=== PATIENT | female | born 1945 | race Caucasian/White ===

== ENCOUNTER → 2018-04-06 | Outpatient (CLI) | payer MEDICARE, OTHER ==
--- NOTE | 2018-04-06 12:21 | US ---
EXAMINATION TYPE: US thyroid st tissue head/neck DATE OF EXAM: 04/06/2018 COMPARISON: NONE CLINICAL HISTORY: E04.1 Thyroid Nodule. Follow up thyroid nodules, hx of FNA GLAND SIZE: Right Lobe: 4.8 x 2.0 x 2.1 cm Overall Parenchyma: heterogenous Left Lobe: 4.8 x 1.7 x 1.9 cm Overall Parenchyma: heterogeneous Isthmus Thickness: 0.3 cm NODULES RIGHT: # of nodules measured on right: 3 1. 2.1 X 1.2 x 1.7 cm hypoechoic solid nodule at the upper pole with well-defined margins. This nod ule is wider than tall and shows intranodular vascularity. Prior size: 1.7 x 1.1 x 1.8 cm. 2. 1.1 X 0.8 x 0.8 cm hypoechoic solid nodule at the lower pole with well-defined margins. This nodu le is wider than tall and shows intranodular vascularity. Prior size: 1.0 x 0.7 x 1.1 cm 3. 0.8 X 0.5 x 0.8 cm hypoechoic solid nodule at the upper pole with well-defined margins. This nodu le is wider than tall and shows no intranodular vascularity. Prior size: 0.6 x 0.4 x 0.6 cm LEFT: # of nodules measured on left: 1 1. 1.5 X 1.3 x 1.3 cm isoechoic solid nodule at the mid pole with well-defined margins. This nodule is wider than tall and shows intranodular vascularity. Prior size: 1.4 x 1.2 x 1.0 cm ISTHMUS: # of nodules measured in the isthmus: 0 Bilateral neck scanned, no evidence of lymphadenopathy. IMPRESSION: Multiple thyroid nodules
== END ==
LOC: RADUSWWP 10:27
PROVIDERS: ATTEND Otolaryngology
DX: E04.2 Nontoxic multinodular goiter (principal); Z88.0 Allergy status to penicillin; Z91.041 Radiographic dye allergy status; Z91.048 Other nonmedicinal substance allergy status
CPT/HCPCS: 76536

== ENCOUNTER → 2019-01-18 | Outpatient (CLI) | payer MEDICARE ==
--- NOTE | 2019-01-18 10:31 | US ---
EXAMINATION TYPE: US thyroid st tissue head/neck DATE OF EXAM: 01/18/2019 COMPARISON: US 04/06/2018 and 02/28/2014 CLINICAL HISTORY: E04.1 thyroid nodule. Follow up thyroid nodules, history thyroid FNA GLAND SIZE: Right Lobe: 4.8 x 2.3 x 2.1 cm Overall Parenchyma: heterogenous Left Lobe: 4.5 x 1.7 x 2.2 cm Overall Parenchyma: heterogeneous Isthmus Thickness: 0.4 cm NODULES RIGHT: # of nodules measured on right: 3 1. 2.0 X 1.1 x 1.7 cm hypoechoic solid nodule at the upper pole with well-defined margins. This nod ule is wider than tall and shows intranodular vascularity. Prior size: 2.1 x 1.2 x 1.7 cm 2. 1.0 X 0.6 x 0.9 cm hypoechoic solid nodule at the lower pole with well-defined margins. This nodu le is wider than tall and shows intranodular vascularity. Prior size: 1.1 x 0.8 x 0.8 cm 3. 0.8 X 0.5 x 0.7 cm hypoechoic solid nodule at the upper pole with well-defined margins. This nodu le is wider than tall and shows intranodular vascularity. Prior size: 0.8 x 0.5 x 0.8 cm LEFT: # of nodules measured on left: 1 1. 1.4 X 1.4 x 1.4 cm isoechoic solid nodule at the mid pole with well-defined margins. This nodule is wider than tall and shows intranodular vascularity. Prior size: 1.5 x 1.3 x 1.3 cm ISTHMUS: # of nodules measured in the isthmus: 0 Bilateral neck scanned, no evidence of lymphadenopathy. IMPRESSION: Multinodular goiter. Similar size of the bilateral thyroid nodules in comparison to the prior of 03/09 with the largest nodules bilaterally demonstrating only very minimal interval growth from exam s back to 2013.
== END | disposition home or self-care (01) ==
LOC: RADUSWWP 08:56
PROVIDERS: ATTEND Otolaryngology
DX: E04.2 Nontoxic multinodular goiter (principal)
CPT/HCPCS: 76536

== ENCOUNTER → 2019-06-18 | Outpatient (CLI) | payer MEDICARE ==
--- NOTE | 2019-06-18 17:05 | CT ---
EXAMINATION TYPE: CT lumbar spine wo con DATE OF EXAM: 06/18/2019 COMPARISON: None HISTORY: Low back pain radiating down bilateral legs. CT DLP: 987 mGycm Automated exposure control for dose reduction was used. An unenhanced CT of the lumbar spine was performed. Bone and soft tissue window settings are submitt ed as well as coronal and sagittal reconstructions. FINDINGS: Lumbar vertebral bodies show preserved height and alignment. There is multilevel spondylosis and loss of disc height at intervertebral levels, vacuum phenomenon present at the L4-5, L3-4, L2-3 and L1-2 levels. There is a hiatal hernia with partial intrathoracic stomach. Some nonobstructive punctate francisco javier culi are present within the right kidney. L1-L2: Posterior disc bulge causes mild anterior mass effect on the thecal sac. No significant spinal stenosis. Circumferential extension of disc bulge causes some foraminal encroachment greater on the right. L2-L3: Posterior broad-based disc bulge causes mild anterior mass effect on the thecal sac. No signif icant spinal stenosis. No definite foraminal encroachment. L3-L4: Posterior extension endplate disc complex causes mild anterior mass effect on the thecal sac. No significant spinal stenosis. Circumferential extension endplate disc complex encroaches mildly on the foramina. L4-L5: Posterior broad-based disc bulge causes anterior mass effect on the thecal sac. Mild spinal st enosis is suspected. There is facet arthropathy with hypertrophy ligamentum flavum causing some poste rior lateral mass effect on the thecal sac. L5-S1: No significant spinal stenosis. There is some facet arthropathy change with hypertrophic ligam entum flavum. Minimal posterior disc bulge present. No significant foraminal encroachment. IMPRESSION: No paraspinal masses are identified. Degenerative disc disease and facet arthropathy. Mild foraminal encroachment. No significant spinal stenosis. Nonobstructive right nephrolithiasis. Hiatal hernia wit h partial intrathoracic stomach. Lumbar segments are intact. Question borderline hepatomegaly.
== END | disposition home or self-care (01) ==
LOC: RADCTMAIN 15:52
PROVIDERS: ATTEND Physical Medicine & Rehabilitation
DX: M47.26 Other spondylosis with radiculopathy, lumbar region (principal); M51.36 Other intervertebral disc degeneration, lumbar region
CPT/HCPCS: 72131

== ENCOUNTER → 2020-01-10 | Outpatient (CLI) | payer MEDICARE ==
--- NOTE | 2020-01-10 10:32 | US ---
EXAMINATION TYPE: US thyroid st tissue head/neck DATE OF EXAM: 01/10/2020 COMPARISON: NONE CLINICAL HISTORY: E04.1 THYROID NODULE. Patient has large thick neck and was unable to lay flat for exam. Technically diffficult. GLAND SIZE: Right Lobe: 5.5 x 2.4 x 1.6 cm Overall Parenchyma: heterogenous Left Lobe: 5.2 x 1.9 x 2.4 cm Overall Parenchyma: heterogeneous Isthmus Thickness: 0.2 cm NODULES RIGHT: # of nodules measured on right: 2 1. 2.0 x 1.0 x 1.6cm hypoechoic solid nodule at the upper pole with well-defined margins. This nodu le is wider than tall and shows intranodular vascularity. Prior size: 2.0 x 1.1 x 1.7 cm 2. 0.9 X 0.7 x 0.9 cm hypoechoic solid nodule at the mid pole with poorly defined margins . This no dule is wider than tall and shows intranodular vascularity. Prior size: 1.0 x 0.6 x 0.9 cm 3. 0.8 X 0.5 x 0.5 cm hypoechoic mixed nodule at the mid lower pole with poorly defined margins. Th is nodule is wider than tall and shows intranodular vascularity. Prior size: 0.8 x 0.5 x 0.7 cm LEFT: # of nodules measured on left: 1 1. 1.6 X 1.3 x 1.5cm isoechoic solid nodule at the mid pole with well-defined margins. This nodule is wider than tall and shows intranodular vascularity. Prior size: 1.4 x 1.4 x 1.4 cm ISTHMUS: # of nodules measured in the isthmus: 0 Bilateral neck scanned, no evidence of lymphadenopathy. IMPRESSION: Thyromegaly correlate for thyroiditis. Multinodular thyroid demonstrates no significant interval ling ge in the size of the nodules as described above.
== END | disposition home or self-care (01) ==
LOC: RADUSWWP 09:42
PROVIDERS: ATTEND Otolaryngology
DX: E01.0 Iodine-deficiency related diffuse (endemic) goiter (principal)
CPT/HCPCS: 76536

== ENCOUNTER → 2021-01-10 | Outpatient (CLI) | payer MEDICARE ==
--- NOTE | 2021-01-10 15:50 | US ---
EXAMINATION TYPE: US thyroid st tissue head/neck DATE OF EXAM: 01/10/2021 COMPARISON: US 2020 CLINICAL HISTORY: E04.1 Thyroid nodule. Thyroid nodules, history of thyroid FNA GLAND SIZE: Right Lobe: 5.4 x 2.3 x 2.1 cm Overall Parenchyma: heterogenous Left Lobe: 5.3 x 2.0 x 2.1 cm Overall Parenchyma: heterogeneous Isthmus Thickness: 0.3 cm NODULES RIGHT: # of nodules measured on right: 1 1. 2.1 X 1.1 x 1.8 cm, upper mid, solid or almost completely solid, hypoechoic nodule, which is wid er than tall, with smooth margins, without echogenic foci. TR 4 Prior size: 2.0 x 1.0 x 1.6 cm 2. multiple subcentimeter nodules throughout LEFT: # of nodules measured on left: 1 1. 1.4 X 1.2 x 1.1 cm, mid lateral, solid or almost completely solid, hypoechoic nodule, which is w ider than tall, with smooth margins, without echogenic foci. Prior size: 1.6 x 1.3 x 1.5 cm ISTHMUS: # of nodules measured in the isthmus: 0 Bilateral neck scanned, no evidence of lymphadenopathy. IMPRESSION: Moderately suspicious nodule right lobe thyroid biopsy if this has not previously been performed. 2017 ACR TI-RADS LEVEL: TR-RADS 4 - Moderately Suspicious: Follow if > 1 cm, FNA if > 1.5 cm *Highest TI-RADS level nodule reported
== END | disposition home or self-care (01) ==
LOC: RADUSWWP 15:16
PROVIDERS: ATTEND Otolaryngology
DX: E04.1 Nontoxic single thyroid nodule (principal)
CPT/HCPCS: 76536

== ENCOUNTER → 2022-01-14 | Outpatient (CLI) | payer MEDICARE ==
--- NOTE | 2022-01-14 14:35 | US ---
EXAMINATION TYPE: US thyroid st tissue head/neck DATE OF EXAM: 01/14/2022 COMPARISON: Multiple thyroid ultrasounds, most recent 01/10/2021. CLINICAL HISTORY: E04.1 THYROID NODULE. Nodule. Hx FNA. GLAND SIZE: Right Lobe: 5.8 x 2.1 x 2.6 cm Overall Parenchyma: heterogenous Left Lobe: 5.3 x 2.3 x 2.0 cm Overall Parenchyma: heterogeneous Isthmus Thickness: 0.34 cm NODULES RIGHT: # of nodules measured on right: 2. Additional subcentimeter nodules seen. 1. 2.1 X 1.9 x 1.2 cm, upper mid, solid or almost completely solid, hypoechoic nodule, which is wid er than tall, with smooth margins, without echogenic foci. TR-4 Prior size: 2.1 x 1.1 x 1.8 cm 2. 1.5 X 1.4 x 1.2 cm, mid lateral, solid or almost completely solid, hypoechoic nodule, which is w ider than tall, with smooth margins, without echogenic foci. TR4 Prior size: 1.4 x 1.2 x 1.1 cm LEFT: # of nodules measured on left: 1 1. 1.2 X 1.3 x 0.9 cm, lower mid, solid or almost completely solid, hypoechoic nodule, which is wid er than tall, with smooth margins, without echogenic foci. TR-4 Prior size: 1.4 x 1.2 x 1.1 cm. ISTHMUS: # of nodules measured in the isthmus: 0 Bilateral neck scanned, no evidence of lymphadenopathy. IMPRESSION: Multinodular thyroid redemonstrated without significant change.
== END | disposition home or self-care (01) ==
LOC: RADUSWWP 13:49
PROVIDERS: ATTEND Otolaryngology
DX: E04.1 Nontoxic single thyroid nodule (principal)
CPT/HCPCS: 76536

== ENCOUNTER → 2022-01-23 | Outpatient (CLI) | payer MEDICARE ==
[2022-01-23 14:28] LABS: T4, Free (Free Thyroxine) 1.03 ng/dL (0.800-1.800)
[2022-01-23 14:29] LABS: Thyroid Peroxidase Antibodies <9.0 U/mL (0.0-33.0)
== END | disposition home or self-care (01) ==
LOC: LABWHC1 10:04
PROVIDERS: ATTEND Otolaryngology
DX: Z00.00 Encounter for general adult medical examination without abnormal findings (principal); E03.9 Hypothyroidism, unspecified; R53.83 Other fatigue
CPT/HCPCS: 36415; 84439; 84443; 84480; 86376

== ENCOUNTER → 2023-08-13 | Outpatient (CLI) | payer MEDICARE ==
[2023-08-13 11:55] LABS: Prothrombin Time 10.6 sec (10.0-12.5)
[2023-08-13 15:39] LABS: ALT 12 U/L (8-44); AST 18 U/L (13-35); Albumin 4.1 g/dL (3.8-4.9); Albumin/Globulin Ratio 1.86 Ratio (1.60-3.17); Alkaline Phosphatase 85 U/L (41-126); Blood Urea Nitrogen 8.4 mg/dL (9.0-27.0); Calcium 10.4 mg/dL (8.7-10.3); Carbon Dioxide 26.4 mmol/L (21.6-31.8); Chloride 105 mmol/L (96-109); Globulin 2.2 g/dL (1.6-3.3); Glucose 115 mg/dL (70-110); Potassium 4.9 mmol/L (3.5-5.5); Sodium 140 mmol/L (135-145); Total Bilirubin 0.5 mg/dL (0.3-1.2); Total Protein 6.3 g/dL (6.2-8.2)
[2023-08-13 16:14] LABS: Basophils # (A) 0.05 X 10*3/uL (0.00-0.10); Eosinophils # (A) 0.16 X 10*3/uL (0.04-0.35); Eosinophils % (A) 3.1 %; HCT 44.5 % (37.2-46.3); HGB 14.8 g/dL (12.0-15.0); Lymphocytes # (A) 2.22 X 10*3/uL (0.90-5.00); MCH 29.5 pg (27.0-32.0); MCHC 33.3 g/dL (32.0-37.0); MCV 88.6 FL (80.0-97.0); Monocytes # (A) 0.55 X 10*3/uL (0.20-1.00); Monocytes % (A) 10.7 %; NRBC Per 100 WBC 0 X 10*3/uL (0.00-0.01); Neutrophils # (A) 2.16 X 10*3/uL (1.80-7.70); Neutrophils % (A) 41.8 %; Platelet Count 236 X 10*3/uL (140-440); RBC 5.02 X 10*6/uL (4.10-5.20); RDW 12.8 % (11.5-14.5); WBC 5.16 X 10*3/uL (4.50-10.00)
== END | disposition home or self-care (01) ==
LOC: LABPAT 10:45
PROVIDERS: ATTEND Orthopaedic Surgery Sports Medicine
DX: Z01.812 Encounter for preprocedural laboratory examination (principal); M17.12 Unilateral primary osteoarthritis, left knee; I45.10 Unspecified right bundle-branch block; R94.31 Abnormal electrocardiogram [ECG] [EKG]; Z22.322 Carrier or suspected carrier of Methicillin resistant Staphylococcus aureus
CPT/HCPCS: 80053; 85025; 85610; 85730; 87070; 93005

== ENCOUNTER 2023-08-31 13:27 | Observation (INO) | payer MEDICARE ==
--- NOTE | 2023-08-31 13:50 | ED ---
Extremity Problem HPI - General Chief complaint: Extremity Problem,Nontraumatic Stated complaint: Complications from knee replacement Time Seen by Provider: 08/31/23 13:48 Source: patient, RN notes reviewed Mode of arrival: wheelchair Limitations: no limitations - History of Present Illness Initial comments: This is an 78 year old female who presents to the emergency department for left leg pain. Patient was discharged yesterday after being in the hospital for a left knee replacement. States that since going home she continues to have pain and is unable to care for herself in this state and does not have any help. She is taking oxycodone and has an iPACK for pain management, however this has not been effective. States that she is unable to ambulate due to the pain. She is hoping for rehab placement, she states that she cannot care for self at home in this state. Notes that it took her an hour to get off of the toilet today in her current condition. - Related Data Home Medications Medication Instructions Recorded Confirmed Ibuprofen [Motrin] 800 tab PO Q6H PRN 01/26/15 08/31/23 Omeprazole [PriLOSEC] 20 tab PO DAILY 01/26/15 08/31/23 Ergocalciferol [Vitamin D2 (1250 1,250 mcg PO SA 08/25/23 08/31/23 Mcg = 90587 Iu)] oxyBUTYnin chloride [oxyBUTYnin 5 mg PO DAILY 08/31/23 08/31/23 chloride ER] Previous Rx's Medication Instructions Recorded Aspirin [Adult Low Dose Aspirin EC] 81 mg PO BID #60 tab 08/29/23 Docusate [Colace] 100 mg PO BID #60 capsule 08/29/23 Ondansetron [Zofran] 4 mg PO Q8HR PRN #21 tab 08/29/23 oxyCODONE HCL/ACETAMINOPHEN 1 tab PO Q4HR PRN #32 tab 08/29/23 [Percocet 5-325 mg] Allergies Allergy/AdvReac Type Severity Reaction Status Date / Time Iodinated Contrast Media Allergy Anaphylaxis Verified 08/31/23 15:20 acetaminophen [From [place]] AdvReac Nausea Verified 08/31/23 15:20 adhesive tape AdvReac Rash/Hives Verified 08/31/23 15:20 aspirin AdvReac Nausea & Verified 08/31/23 15:20 Vomiting hydrocodone bitartrate AdvReac Nausea Verified 08/31/23 15:20 [From [place]] Penicillins AdvReac "Passed Verified 08/31/23 15:20 out" Review of Systems ROS Statement: Those systems with pertinent positive or pertinent negative responses have been documented in the HPI. ROS Other: All systems not noted in ROS Statement are negative. Past Medical History Past Medical History: GERD/Reflux, Osteoarthritis (OA) Additional Past Medical History / Comment(s): OCC INCONTINENT History of Any Multi-Drug Resistant Organisms: None Reported Past Surgical History: Heart Catheterization, Hernia Repair, Orthopedic Surgery Additional Past Surgical History / Comment(s): hernia mesh x2. BILATERAL WRIST- REMOVAL CARTILEDGE. BILATERAL CATARACT WITH LENS. Additional Past Anesthesia/Blood Transfusion Reaction / Comment(s): POSSIBLE JACQUELINE POST ANESTHESIA (PER MEDICAL CLEARANCE). Past Psychological History: No Psychological Hx Reported Smoking Status: Former smoker Past Alcohol Use History: None Reported Past Drug Use History: None Reported - Past Family History Son(s) Family Medical History: Deep Vein Thrombosis (DVT) General Exam Limitations: no limitations General appearance: alert, in no apparent distress Head exam: Present: atraumatic, normocephalic, normal inspection Respiratory exam: Present: normal lung sounds bilaterally. Absent: respiratory distress, wheezes, rales, rhonchi, stridor Cardiovascular Exam: Present: regular rate, normal rhythm, normal heart sounds. Absent: systolic murmur, diastolic murmur, rubs, gallop, clicks Extremities exam: Present: other (Expected postoperative swelling to the left lower extremity. Incision is clean, dry, and intact.) Neurological exam: Present: alert, oriented X3, CN II-XII intact Psychiatric exam: Present: normal affect, normal mood Skin exam: Present: warm, dry, intact, normal color. Absent: rash Course Vital Signs 08/31/23 08/31/23 08/31/23 13:39 16:43 17:13 Temperature 98.8 F Pulse Rate 80 80 68 Respiratory 17 18 16 Rate Blood Pressure 162/78 160/80 138/68 O2 Sat by Pulse 91 L 97 94 L Oximetry Medical Decision Making - Medical Decision Making This is an 78 year old female who presents to the emergency department for left leg pain. Was pt. sent in by a medical professional or institution? @ -No Did you speak to anyone other than the patient for history? @ -No Did you review nursing and triage notes? @ -Yes, and I agree, it is accurate with regards to the patient's symptoms. Were old charts reviewed? @ -No Differential Diagnosis? @ -Differential Musculoskeletal: Muscular strain, contusion, ligament sprain, fracture, arthritis, septic arthritis, bursitis, cellulitis, muscle spasm, nerve compression, DVT, arterial occlusion, herpes zoster, electrolyte abnormality, tumor.... This is not meant to be in all inclusive list EKG interpreted by me (3pts min.)? @ -Not obtained X-rays interpreted by me (1pt min.)? @ -Not obtained CT interpreted by me (1pt min.)? @ -Not obtained U/S interpreted by me (1pt. min.)? @ -Not obtained What testing was considered but not performed? (CT, X-rays, U/S, labs)? Why? @ -None What meds were considered but not given? Why? @ -None Did you discuss the management of the patient with other professionals? @ -Dr. Coker who spoke with Dr. Garcia, the patient's surgeon, who accepts the patient for admission. Did you reconcile home meds? @ -Yes Was smoking cessation discussed for >3mins.? @ -No Was critical care preformed (if so, how long)? @ -No Were there social determinants of health that impacted care today? How? (Homelessness, low income, unemployed, alcoholism, drug addiction, transportation, low edu. Level, literacy, decrease access to med. care, fci, rehab)? @ -No Was there de-escalation of care discussed even if they declined? (Discuss DNR or withdrawal of care, Hospice)? @ -No What co-morbidities impacted this encounter? (DM, HTN, Smoking, COPD, CAD, Cancer, CVA, Hep., AIDS, mental health diagnosis, sleep apnea, morbid obesity)? @ -Morbid obesity Was patient admitted / discharged? @ -Admitted. Patient is essentially presenting to the emergency department requesting admission for rehab placement. States that she has been unable to ambulate following the knee replacement as a result of her pain and cannot take care of herself. She lives with her , who is also unable to help her. Case discussed with medicine, who requests admission to orthopedics due to r ecent surgery. Case discussed with Dr. Coker, orthopedics. He spoke with the patient's surgeon, Dr. Garcia, who is agreeable to admission. Lab work obtained prior to admission which was found to be unremarkable. Consult placed for medicine for medical management. Consult placed for physical therapy, Occupational Therapy, and case management as well. Undiagnosed new problem with uncertain prognosis? @ -None Drug Therapy requiring intensive monitoring for toxicity (Heparin, Nitro, Insulin, Cardizem)? @ -None Were any procedures done? @ -None Diagnosis/symptom? @ -Postoperative left knee pain, inability to ambulate due to left knee pain Acute, or Chronic, or Acute on Chronic? @ -Acute Uncomplicated (without systemic symptoms) or Complicated (systemic symptoms)? @ -Uncomplicated Side effects of treatment? @ -None Exacerbation, Progression, or Severe Exacerbation] @ -Not applicable Poses a threat to life or bodily function? @ -Yes, the patient is unable to ambulate. This case was discussed in detail with the attending ED physician, Dr. Joseph. Presentation, findings, and treatment plan discussed in detail as well. - Lab Data Result diagrams: 08/31/23 14:18 08/31/23 14:18 Lab Results 08/31/23 08/31/23 Range/Units 14:18 14:18 WBC 7.7 (3.8-10.6) k/uL RBC 4.56 (3.80-5.40) m/uL Hgb 13.4 (11.4-16.0) gm/dL Hct 41.7 (34.0-46.0) % MCV 91.4 (80.0-100.0) fL MCH 29.4 (25.0-35.0) pg MCHC 32.1 (31.0-37.0) g/dL RDW 12.9 (11.5-15.5) % Plt Count 220 (150-450) k/uL MPV 7.2 Neutrophils % 71 % Lymphocytes % 19 % Monocytes % 7 % Eosinophils % 1 % Basophils % 1 % Neutrophils # 5.5 (1.3-7.7) k/uL Lymphocytes # 1.5 (1.0-4.8) k/uL Monocytes # 0.5 (0-1.0) k/uL Eosinophils # 0.1 (0-0.7) k/uL Basophils # 0.0 (0-0.2) k/uL Sodium 135 L (137-145) mmol/L Potassium 4.0 (3.5-5.1) mmol/L Chloride 103 (98-107) mmol/L Carbon Dioxide 27 (22-30) mmol/L Anion Gap 5 mmol/L BUN 13 (7-17) mg/dL Creatinine 0.71 (0.52-1.04) mg/dL Est GFR (CKD-EPI)AfAm >90 (>60 ml/min/1.73 sqM) Est GFR (CKD-EPI)NonAf 81 (>60 ml/min/1.73 sqM) Glucose 118 H (74-99) mg/dL Calcium 10.1 (8.4-10.2) mg/dL Total Bilirubin 0.7 (0.2-1.3) mg/dL AST 30 (14-36) U/L ALT 15 (4-34) U/L Alkaline Phosphatase 87 (38-126) U/L Total Protein 5.9 L (6.3-8.2) g/dL Albumin 3.4 L (3.5-5.0) g/dL Disposition Clinical Impression: Postoperative pain of left knee, Inability to ambulate due to knee Disposition: ADMITTED IP TO [facility] Time of Disposition: 16:04
[2023-08-31 14:24] LABS: Basophils % (A) 1 %; Eosinophils # (A) 0.1 k/uL (0-0.7); Eosinophils % (A) 1 %; HCT 41.7 % (34.0-46.0); HGB 13.4 gm/dL (11.4-16.0); Lymphocytes # (A) 1.5 k/uL (1.0-4.8); Lymphocytes % (A) 19 %; MCH 29.4 pg (25.0-35.0); MCHC 32.1 g/dL (31.0-37.0); MCV 91.4 fL (80.0-100.0); Mean Platelet Volume 7.2; Monocytes # (A) 0.5 k/uL (0-1.0); Monocytes % (A) 7 %; Neutrophils # (A) 5.5 k/uL (1.3-7.7); Neutrophils % (A) 71 %; Platelet Count 220 k/uL (150-450); RBC 4.56 m/uL (3.80-5.40); RDW 12.9 % (11.5-15.5); WBC 7.7 k/uL (3.8-10.6)
[2023-08-31] MEDS: KETOROLAC 15 MG/ML 1 ML VIAL IVP STA (14:31)
[2023-08-31] MEDS: HYDROmorphone 1 MG/ML 1 ML SYRINGE IVP STA (14:32)
[2023-08-31 14:35] LABS: ALT 15 U/L (4-34); AST 30 U/L (14-36); African American GFR (CKD) >90 (>60 ml/min/1.73 sqM); Albumin 3.4 g/dL (3.5-5.0); Alkaline Phosphatase 87 U/L (38-126); Anion Gap 5 mmol/L; Blood Urea Nitrogen 13 mg/dL (7-17); Calcium 10.1 mg/dL (8.4-10.2); Carbon Dioxide 27 mmol/L (22-30); Chloride 103 mmol/L (98-107); Glucose 118 mg/dL (74-99); Non-African American GFR(CKD) 81 (>60 ml/min/1.73 sqM); Sodium 135 mmol/L (137-145); Total Bilirubin 0.7 mg/dL (0.2-1.3); Total Protein 5.9 g/dL (6.3-8.2)
[2023-08-31] MEDS ORDERED: NALOXONE 0.4 MG/ML 1 ML VIAL IV PRN (16:04)
[2023-08-31] MEDS ORDERED: ACETAMINOPHEN TAB 325 MG TAB PO PRN (16:04)
[2023-08-31] MEDS ORDERED: IBUPROFEN 400 MG TAB PO PRN (16:04)
[2023-08-31] MEDS ORDERED: ONDANSETRON 4 MG/2 ML VIAL IVP PRN (16:04)
[2023-08-31] MEDS ORDERED: IBUPROFEN 800 MG TAB PO PRN (16:08)
[2023-08-31] MEDS ORDERED: ONDANSETRON 4 MG TAB PO PRN (16:08)
[2023-08-31] MEDS: DOCUSATE 100 MG CAP PO SCH (20:16)
[2023-08-31] MEDS: NON FORMULARY DRUG (Aspirin [Adult Low Dose Aspirin Ec] 81 MG Tablet.Dr) PO SCH (20:16)
[2023-09-01] MEDS: HYDROmorphone 1 MG/ML 1 ML SYRINGE IVP PRN (02:04)
[2023-09-01] MEDS: PANTOPRAZOLE 40 MG TABLET PO SCH (06:45)
[2023-09-01] MEDS: OXYBUTYNIN XL 5 MG TAB.ER.24 PO SCH (08:00)
[2023-09-01] MEDS: oxyCODONE-APAP 5-325MG 1 EACH TAB PO PRN ×2 (08:04→12:49)
[2023-09-01] MEDS ORDERED: PANTOPRAZOLE 40 MG/10 ML VIAL IV SCH (09:00)
[2023-09-01] MEDS ORDERED: NON FORMULARY DRUG (Omeprazole [Prilosec] 20 MG Capsule.Dr) PO SCH (09:00)
--- NOTE | 2023-09-01 10:18 | P.HPOR ---
History of Present Illness H&P Date: 09/01/23 Chief Complaint: Left knee pain, Status post total left knee arthroplasty. This is an 78-year-old female who was discharged to home on 08/30/2023 after having total left knee arthroplasty. The patient was doing fairly well and stated that she was ready to go home on Friday. She returned to the emergency department on 08/31/2023 stating that she was unable to care for herself at home and was having increased pain. The patient is now requesting inpatient rehab. Past Medical History Past Medical History: GERD/Reflux, Osteoarthritis (OA) Additional Past Medical History / Comment(s): OCC INCONTINENT History of Any Multi-Drug Resistant Organisms: None Reported Past Surgical History: Heart Catheterization, Hernia Repair, Orthopedic Surgery Additional Past Surgical History / Comment(s): hernia mesh x2. BILATERAL WRIST- REMOVAL CARTILEDGE. BILATERAL CATARACT WITH LENS. RIGHT ANKLE BONE SPUR. TOTAL LEFT KNEE. Additional Past Anesthesia/Blood Transfusion Reaction / Comment(s): POSSIBLE JACQUELINE POST ANESTHESIA (PER MEDICAL CLEARANCE). Past Psychological History: No Psychological Hx Reported Smoking Status: Former smoker Past Alcohol Use History: None Reported Additional Past Alcohol Use History / Comment(s): QUITE 40 YRS AGO. SMOKED 1PPD Past Drug Use History: None Reported - Past Family History Son(s) Family Medical History: Deep Vein Thrombosis (DVT) Medications and Allergies Home Medications Medication Instructions Recorded Confirmed Type Ibuprofen [Motrin] 800 tab PO Q6H PRN 01/26/15 08/31/23 History Omeprazole [PriLOSEC] 20 tab PO DAILY 01/26/15 08/31/23 History Ergocalciferol [Vitamin D2 (1250 1,250 mcg PO SA 08/25/23 08/31/23 History Mcg = 44766 Iu)] Aspirin [Adult Low Dose Aspirin EC] 81 mg PO BID #60 tab 08/29/23 08/31/23 Rx Docusate [Colace] 100 mg PO BID #60 capsule 08/29/23 08/31/23 Rx Ondansetron [Zofran] 4 mg PO Q8HR PRN #21 tab 08/29/23 08/31/23 Rx oxyCODONE HCL/ACETAMINOPHEN 1 tab PO Q4HR PRN #32 tab 08/29/23 08/31/23 Rx [Percocet 5-325 mg] oxyBUTYnin chloride [oxyBUTYnin 5 mg PO DAILY 08/31/23 08/31/23 History chloride ER] Allergies Allergy/AdvReac Type Severity Reaction Status Date / Time Iodinated Contrast Media Allergy Anaphylaxis Verified 08/31/23 15:20 acetaminophen [From [place]] AdvReac Nausea Verified 08/31/23 15:20 adhesive tape AdvReac Rash/Hives Verified 08/31/23 15:20 aspirin AdvReac Nausea & Verified 08/31/23 15:20 Vomiting hydrocodone bitartrate AdvReac Nausea Verified 08/31/23 15:20 [From [place]] Penicillins AdvReac "Passed Verified 08/31/23 15:20 out" Physical Examination This is a pleasant 78-year-old female in no acute distress. She is alert and oriented x 3. Exam of the left lower extremity reveals that her dressing is clean, dry and intact. She has difficulty lifting her leg off the bed independently. She has full foot and ankle motion without difficulty or pain. She does have pain with palpation about the mid calf. Neurovascular status to the lower extremity is intact. Results - Labs Labs: Abnormal Lab Results - Last 24 Hours (Table) 08/31/23 Range/Units 14:18 Sodium 135 L (137-145) mmol/L Glucose 118 H (74-99) mg/dL Total Protein 5.9 L (6.3-8.2) g/dL Albumin 3.4 L (3.5-5.0) g/dL H & H 08/31/23 Range/Units 14:18 Hgb 13.4 (11.4-16.0) gm/dL Hct 41.7 (34.0-46.0) % Result Diagrams: 08/31/23 14:18 08/31/23 14:18 Assessment and Plan (1) Inability to ambulate due to knee Current Visit: Yes Status: Acute Code(s): R26.2 - DIFFICULTY IN WALKING, NOT ELSEWHERE CLASSIFIED SNOMED Code(s): 279683544 (2) Postoperative pain of left knee Current Visit: Yes Status: Acute Code(s): G89.18 - OTHER ACUTE POSTPROCEDURAL PAIN; M25.562 - PAIN IN LEFT KNEE SNOMED Code(s): 9688133214 (3) Status post total left knee replacement Current Visit: No Status: Acute Code(s): Z96.652 - PRESENCE OF LEFT ARTIFICIAL KNEE JOINT SNOMED Code(s): 4148597508253 Plan: The clinical findings are discussed with the patient. We will order physical therapy and Occupational Therapy for evaluation for inpatient rehab placement. I will order a venous Doppler for evaluation of the left lower extremity secondary to her calf pain. We will plan discharge to inpatient rehab when placement is arranged.
--- NOTE | 2023-09-01 11:51 | US ---
EXAMINATION TYPE: US venous doppler duplex LE LT DATE OF EXAM: 09/01/2023 11:25 AM COMPARISON: NONE CLINICAL INDICATION: Female, 78 years old with history of R/O DVT LLE, S/P TKA; pain post op SIDE PERFORMED: Left TECHNIQUE: The lower extremity deep venous system is examined utilizing real time linear array sonog ruy with graded compression, doppler sonography and color-flow sonography. VESSELS IMAGED: Common Femoral Vein Deep Femoral Vein Greater Saphenous Vein * Femoral Vein Popliteal Vein Small Saphenous Vein * Proximal Calf Veins (* superficial vessels) Left Leg: Negative for DVT IMPRESSION: Grayscale, color doppler, spectral doppler imaging performed of the deep veins of the lo wer extremities. There is normal flow, compressibility, vascular waveforms.
--- NOTE | 2023-09-01 17:25 | P.CONS ---
History of Present Illness - Reason for Consult Consult date: 09/01/23 Medical management Requesting physician: Lonnie Garcia - Chief Complaint Left knee pain - History of Present Illness This is a pleasant 78-year-old patient, follows with Dr. Alayna Smith. Chronic stable medical conditions include osteoarthritis, obesity, GERD. Patient underwent left total knee arthroplasty by Dr. Garcia on August 27. Patient was discharged home on August 29. Patient's pain was reasonably controlled on discharge. Yesterday pain became rather severe. is also elderly was unable to help her much. Patient [facility] admitted for the same. Looking into possible rehab. Able to tolerate a diet. No nausea vomiting. No fever no chills. Review of systems: GEN.: Tired EYES: None HEENT: None NECK: None RESPIRATORY: None CARDIOVASCULAR: None GASTROINTESTINAL: None GENITOURINARY: None MUSCULOSKELETAL: [Joint pain especially left knee operative site LYMPHATICS: None HEMATOLOGICAL: None Social history: Patient stopped smoking 40 years ago. No alcohol. Lives with her . Physical examination: VITAL SIGNS: 98.6, 68, 17, 140/69, 91% on 2 L GENERAL: BMI 40.5, sitting up in bed awake not in distress. EYES: Pupils equal. Conjunctiva edy l. HEENT: External appearance of nose and ears normal, oral cavity grossly normal. NECK: JVD not raised; masses not palpable. HEART: First and second heart sounds are normal; no edema. LUNGS: Respiratory rate normal; clear to auscultation. ABDOMEN: Soft, nontender, liver spleen not palpable, no masses palpable. PSYCH: Alert and oriented x3; mood and affect edy l. MUSCULOSKELETAL: OA in joints. Dressing over left knee incision site was NEUROLOGICAL: Cranial nerves grossly intact; no facial asymmetry, power and sensation grossly intact. LYMPHATICS: No lymph nodes palpable in the axilla and neck PSYCHIATRY: None NEUROLOGICAL: None INVESTIGATIONS, reviewed in the clinical context: August 31, 2023: White count 7.7 hemoglobin 13.4 platelets 220 sodium 135 potassium 4 creatinine 0.71 Assessment plan: -Uncontrolled pain secondary to postop left total knee arthroplasty Pain medication being adjusted by orthopedic team -Left total knee arthroplasty on August [address] Garcia On aspirin for DVT prophylaxis -Primary osteoarthritis Pain medication as needed -Morbid obesity BMI 40.5 Weight loss measures -Chronic urine incontinence Oxybutynin 5 mg a day -GERD Prilosec Care was discussed with the patient at bedside. 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 Garcia Past Medical History Past Medical History: GERD/Reflux, Osteoarthritis (OA) Additional Past Medical History / Comment(s): OCC INCONTINENT History of Any Multi-Drug Resistant Organisms: None Reported Past Surgical History: Heart Catheterization, Hernia Repair, Orthopedic Surgery Additional Past Surgical History / Comment(s): hernia mesh x2. BILATERAL WRIST- REMOVAL CARTILEDGE. BILATERAL CATARACT WITH LENS. RIGHT ANKLE BONE SPUR. TOTAL LEFT KNEE. Additional Past Anesthesia/Blood Transfusion Reaction / Comm: POSSIBLE JACQUELINE POST ANESTHESIA (PER MEDICAL CLEARANCE). Past Psychological History: No Psychological Hx Reported Smoking Status: Former smoker Past Alcohol Use History: None Reported Additional Past Alcohol Use History / Comment(s): QUITE 40 YRS AGO. SMOKED 1PPD Past Drug Use History: None Reported - Past Family History Son(s) Family Medical History: Deep Vein Thrombosis (DVT) Medications and Allergies Home Medications Medication Instructions Recorded Confirmed Type Ibuprofen [Motrin] 800 tab PO Q6H PRN 01/26/15 08/31/23 History Omeprazole [PriLOSEC] 20 tab PO DAILY 01/26/15 08/31/23 History Ergocalciferol [Vitamin D2 (1250 1,250 mcg PO SA 08/25/23 08/31/23 History Mcg = 53802 Iu)] Aspirin [Adult Low Dose Aspirin EC] 81 mg PO BID #60 tab 08/29/23 08/31/23 Rx Docusate [Colace] 100 mg PO BID #60 capsule 08/29/23 08/31/23 Rx Ondansetron [Zofran] 4 mg PO Q8HR PRN #21 tab 08/29/23 08/31/23 Rx oxyCODONE HCL/ACETAMINOPHEN 1 tab PO Q4HR PRN #32 tab 08/29/23 08/31/23 Rx [Percocet 5-325 mg] oxyBUTYnin chloride [oxyBUTYnin 5 mg PO DAILY 08/31/23 08/31/23 History chloride ER] Allergies Allergy/AdvReac Type Severity Reaction Status Date / Time Iodinated Contrast Media Allergy Anaphylaxis Verified 08/31/23 15:20 acetaminophen [From [facility]ston] AdvReac Nausea Verified 08/31/23 15:20 adhesive tape AdvReac Rash/Hives Verified 08/31/23 15:20 aspirin AdvReac Nausea & Verified 08/31/23 15:20 Vomiting hydrocodone bitartrate AdvReac Nausea Verified 08/31/23 15:20 [From Aston] Penicillins AdvReac "Passed Verified 08/31/23 15:20 out" Physical Exam Vitals: Vital Signs Temp Pulse Pulse Resp BP BP Pulse Ox 09/01/23 09:58 17 09/01/23 07:16 98.6 F 68 17 140/69 91 L 09/01/23 02:00 98.2 F 72 20 142/80 96 08/31/23 20:00 98.3 F 69 20 134/74 95 08/31/23 17:30 98.2 F 70 19 157/83 95 08/31/23 17:13 68 16 138/68 94 L 08/31/23 16:43 80 18 160/80 97 08/31/23 13:39 98.8 F 80 17 162/78 91 L Intake and Output 08/31/23 09/01/23 09/01/23 22:59 06:59 14:59 Intake Total 180 Balance 180 Intake: Oral 180 Other: Voiding Method Toilet Toilet # Voids 1 1 Weight 112.945 kg Results CBC & Chem 7: 08/31/23 14:18 08/31/23 14:18 Labs: Abnormal Lab Results - Last 24 Hours (Table) 08/31/23 Range/Units 14:18 Sodium 135 L (137-145) mmol/L Glucose 118 H (74-99) mg/dL Total Protein 5.9 L (6.3-8.2) g/dL Albumin 3.4 L (3.5-5.0) g/dL
--- NOTE | 2023-09-02 16:43 | P.PN ---
Progress Note - Text Progress Note Date: 09/02/23 - Chief Complaint Left knee pain - History of Present Illness This is a pleasant 78-year-old patient, follows with Dr. Alayna Smith. Chronic stable medical conditions include osteoarthritis, obesity, GERD. Patient underwent left total knee arthroplasty by Dr. Garcia on August 27. Patient was discharged home on August 29. Patient's pain was reasonably controlled on discharge. Yesterday pain became rather severe. is also elderly was unable to help her much. Patient Coury admitted for the same. Looking into possible rehab. Able to tolerate a diet. No nausea vomiting. No fever no chills. September 01: Up in a recliner. Did work with physical therapy. Did walk about 100 feet with a rolling walker. Oral intake good. Active Medications Acetaminophen (Acetaminophen Tab 325 Mg Tab) 650 mg PO Q6HR PRN PRN Reason: Mild Pain or Fever > 100.5 Docusate Sodium (Docusate 100 Mg Cap) 100 mg PO BID [facility] Last Admin: 09/02/23 08:24 Dose: 100 mg Ergocalciferol (Ergocalciferol 1,250 Mcg (50,000 Iu) Capsule) 1,250 mcg PO SA [facility] Hydromorphone HCl (Hydromorphone 1 Mg/Ml 1 Ml Syringe) 1 mg IVP Q3HR PRN PRN Reason: Severe Pain (Scale 7 to 10) Last Admin: 09/01/23 20:40 Dose: 1 mg Ibuprofen (Ibuprofen 400 Mg Tab) 400 mg PO Q6HR PRN PRN Reason: Mild Pain or Fever > 100.5 Ibuprofen (Ibuprofen 800 Mg Tab) 800 mg PO Q6H PRN PRN Reason: Pain or Fever > 100.5 Ketorolac Tromethamine (Ketorolac 15 Mg/Ml 1 Ml Vial) 15 mg IVP Q6HR PRN PRN Reason: Moderate Pain (Scale 4 to 6) Stop: 09/03/23 16:06 Naloxone HCl (Naloxone 0.4 Mg/Ml 1 Ml Vial) 0.2 mg IV Q2M PRN PRN Reason: Opioid Reversal Non-Formulary Medication (Aspirin [Adult Low Dose Aspirin Ec]) 81 mg PO BID [facility] Last Admin: 09/02/23 08:21 Dose: 81 mg Ondansetron HCl (Ondansetron 4 Mg/2 Ml Vial) 4 mg IVP Q8HR PRN PRN Reason: Nausea And Vomiting Ondansetron HCl (Ondansetron 4 Mg Tab) 4 mg PO Q8HR PRN PRN Reason: Nausea Oxybutynin Chloride (Oxybutynin Xl 5 Mg Tab.Er.24) 5 mg PO DAILY [facility] Last Admin: 09/02/23 08:21 Dose: 5 mg Oxycodone/Acetaminophen (Oxycodone-Apap 5-325mg 1 Each Tab) 1 each PO Q4HR PRN PRN Reason: Pain Last Admin: 09/02/23 15:05 Dose: 1 each Pantoprazole Sodium (Pantoprazole 40 Mg Tablet) 40 mg PO AC-BRKFST [facility] Last Admin: 09/02/23 06:59 Dose: 40 mg Social history: Patient stopped smoking 40 years ago. No alcohol. Lives with her . Physical examination: VITAL SIGNS: 98.1, 65, 16, 150/79, 93% room air GENERAL: Up in a recliner, comfortable EYES: Pupils equal. Conjunctiva edy l. HEENT: External appearance of nose and ears normal, oral cavity grossly normal. NECK: JVD not raised; masses not palpable. HEART: First and second heart sounds are normal; no edema. LUNGS: Respiratory rate normal; clear to auscultation. ABDOMEN: Soft, nontender, liver spleen not palpable, no masses palpable. PSYCH: Alert and oriented x3; mood and affect edy l. MUSCULOSKELETAL: OA in joints. Dressing over left knee incision site was INVESTIGATIONS, reviewed in the clinical context: August 31, 2023: White count 7.7 hemoglobin 13.4 platelets 220 sodium 135 potassium 4 creatinine 0.71 Assessment plan: -Uncontrolled pain secondary to postop left total knee arthroplasty: Better Pain medication being adjusted by orthopedic team -Left total knee arthroplasty on August [address] Garcia On aspirin for DVT prophylaxis -Acute gait dysfunction secondary to postop pain: Better with better pain medication control -Primary osteoarthritis Pain medication as needed -Morbid obesity BMI 40.5 Weight loss measures -Chronic urine incontinence Oxybutynin 5 mg a day -GERD Prilosec Discussed with patient. Questions answered Thank you Dr. Garcia Past Medical History Past Medical History: GERD/Reflux, Osteoarthritis (OA) Additional Past Medical History / Comment(s): OCC INCONTINENT History of Any Multi-Drug Resistant Organisms: None Reported Past Surgical History: Heart Catheterization, Hernia Repair, Orthopedic Surgery Additional Past Surgical History / Comment(s): hernia mesh x2. BILATERAL WRIST- REMOVAL CARTILEDGE. BILATERAL CATARACT WITH LENS. RIGHT ANKLE BONE SPUR. TOTAL LEFT KNEE. Additional Past Anesthesia/Blood Transfusion Reaction / Comm: POSSIBLE JACQUELINE POST ANESTHESIA (PER MEDICAL CLEARANCE). Past Psychological History: No Psychological Hx Reported Smoking Status: Former smoker Past Alcohol Use History: None Reported Additional Past Alcohol Use History / Comment(s): QUITE 40 YRS AGO. SMOKED 1PPD Past Drug Use History: None Reported
[2023-09-02] MEDS: KETOROLAC 15 MG/ML 1 ML VIAL IVP PRN (20:33)
[2023-09-03 08:57] VITALS: RESP 16
--- NOTE | 2023-09-03 12:24 | P.DS ---
Providers Date of admission: 08/31/23 16:52 Expected date of discharge: 09/03/23 Attending physician: Lonnie Garcia Consults: 08/31/23 16:04 Consult Physician Urgent Consulting Provider: Juan C Wiggins Consult Reason/Comments: Postop left knee pain, inability to ambulate due to left knee pain Do you want consulting provider notified?: Yes Primary care physician: Alayna Smith MD - Discharge Diagnosis(es) (1) Status post total left knee replacement She was readmitted on 09/01/23 after having difficulty at home with managing ADLs. She is s/p left TKA. She has improved with her independence, ambulating, getting up and down from bed and chair and ADLs over past few days. She passed PT with stairs. She has no new complaints and desires D/C to home. She is to f/u in office with Dr. Garcia Current Visit: No Status: Acute Priority: Medium Patient Condition at Discharge: Good Plan - Discharge Summary Discharge Rx Participant: No New Discharge Prescriptions: Continue Omeprazole [PriLOSEC] 20 tab PO DAILY Ibuprofen [Motrin] 800 tab PO Q6H PRN PRN Reason: Pain Or Fever > 100.5 Ergocalciferol [Vitamin D2 (1250 Mcg = 69239 Iu)] 1,250 mcg PO SA Docusate [Colace] 100 mg PO BID #60 capsule oxyCODONE HCL/ACETAMINOPHEN [Percocet 5-325 mg] 1 tab PO Q4HR PRN #32 tab PRN Reason: Pain Aspirin [Adult Low Dose Aspirin EC] 81 mg PO BID #60 tab Ondansetron [Zofran] 4 mg PO Q8HR PRN #21 tab PRN Reason: Nausea oxyBUTYnin chloride [oxyBUTYnin chloride ER] 5 mg PO DAILY Discharge Medication List Ibuprofen [Motrin] 800 tab PO Q6H PRN 01/26/15 [History] Omeprazole [PriLOSEC] 20 tab PO DAILY 01/26/15 [History] Ergocalciferol [Vitamin D2 (1250 Mcg = 05321 Iu)] 1,250 mcg PO SA 08/25/23 [History] Aspirin [Adult Low Dose Aspirin EC] 81 mg PO BID #60 tab 08/29/23 [Rx] Docusate [Colace] 100 mg PO BID #60 capsule 08/29/23 [Rx] Ondansetron [Zofran] 4 mg PO Q8HR PRN #21 tab 08/29/23 [Rx] oxyCODONE HCL/ACETAMINOPHEN [Percocet 5-325 mg] 1 tab PO Q4HR PRN #32 tab 08/29/23 [Rx] oxyBUTYnin chloride [oxyBUTYnin chloride ER] 5 mg PO DAILY 08/31/23 [History] Follow up Appointment(s)/Referral(s): Alayna Smith MD [Primary Care Provider] - 1-2 days [facility] [NON-STAFF] - As Needed Lonnie Garcia MD [STAFF PHYSICIAN] - 1 Week Discharge Disposition: HOME WITH HOME HEALTH SERVICES
[2023-09-03 14:28] VITALS: BP 166/80; PULSE 72; TEMP 98
--- NOTE | 2023-09-03 15:47 | P.PN ---
Progress Note - Text Progress Note Date: 09/03/23 - Chief Complaint Left knee pain - History of Present Illness This is a pleasant 78-year-old patient, follows with Dr. Alayna Smith. Chronic stable medical conditions include osteoarthritis, obesity, GERD. Patient underwent left total knee arthroplasty by Dr. Garcia on August 27. Patient was discharged home on August 29. Patient's pain was reasonably controlled on discharge. Yesterday pain became rather severe. is also elderly was unable to help her much. Patient [facility] admitted for the same. Looking into possible rehab. Able to tolerate a diet. No nausea vomiting. No fever no chills. September 01: Up in a recliner. Did work with physical therapy. Did walk about 100 feet with a rolling walker. Oral intake good. September 02: Doing well. Pain is better controlled. Patient be going home. Seen by therapy. Questions answered. Medications reviewed Social history: Patient stopped smoking 40 years ago. No alcohol. Lives with her . Physical examination: VITAL SIGNS: 98, 72, 16, 166 x 80, 93% room air GENERAL: Up in a recliner, comfortable EYES: Pupils equal. Conjunctiva edy l. HEENT: External appearance of nose and ears normal, oral cavity grossly normal. NECK: JVD not raised; masses not palpable. HEART: First and second heart sounds are normal; no edema. LUNGS: Respiratory rate normal; clear to auscultation. ABDOMEN: Soft, nontender, liver spleen not palpable, no masses palpable. PSYCH: Alert and oriented x3; mood and affect edy l. MUSCULOSKELETAL: OA in joints. Dressing over left knee incision site was INVESTIGATIONS, reviewed in the clinical context: August 31, 2023: White count 7.7 hemoglobin 13.4 platelets 220 sodium 135 potassium 4 creatinine 0.71 Assessment plan: -Uncontrolled pain secondary to postop left total knee arthroplasty: Better Pain medication being adjusted by orthopedic team -Left total knee arthroplasty on August [address] Garcia On aspirin for DVT prophylaxis -Acute gait dysfunction secondary to postop pain: Better with better pain medication control -Primary osteoarthritis Pain medication as needed -Morbid obesity BMI 40.5 Weight loss measures -Chronic urine incontinence Oxybutynin 5 mg a day -GERD Prilosec Questions answered. Doing well. Thank you Dr. Garcia Past Medical History Past Medical History: GERD/Reflux, Osteoarthritis (OA) Additional Past Medical History / Comment(s): OCC INCONTINENT History of Any Multi-Drug Resistant Organisms: None Reported Past Surgical History: Heart Catheterization, Hernia Repair, Orthopedic Surgery Additional Past Surgical History / Comment(s): hernia mesh x2. BILATERAL WRIST- REMOVAL CARTILEDGE. BILATERAL CATARACT WITH LENS. RIGHT ANKLE BONE SPUR. TOTAL LEFT KNEE. Additional Past Anesthesia/Blood Transfusion Reaction / Comm: POSSIBLE JACQUELINE POST ANESTHESIA (PER MEDICAL CLEARANCE). Past Psychological History: No Psychological Hx Reported Smoking Status: Former smoker Past Alcohol Use History: None Reported Additional Past Alcohol Use History / Comment(s): QUITE 40 YRS AGO. SMOKED 1PPD Past Drug Use History: None Reported
[2023-09-06] MEDS ORDERED: ERGOCALCIFEROL 1,250 MCG (50,000 IU) CAPSULE PO SCH (09:00)
== END 2023-09-03 14:25 | disposition home health service (06) ==
LOC: EC 13:27 → 4SSUR 16:52 → INTOOBSV 16:52 → 4SSUR 17:01 → UNDODISIN 09-03 14:25
PROVIDERS: ADMIT Orthopaedic Surgery Sports Medicine; ATTEND Orthopaedic Surgery Sports Medicine
DX: T84.84XA Pain due to internal orthopedic prosthetic devices, implants and grafts, initial encounter (principal); Z68.41 Body mass index [BMI] 40.0-44.9, adult; G89.18 Other acute postprocedural pain; Y79.2 Prosthetic and other implants, materials and accessory orthopedic devices associated with adverse incidents; R26.2 Difficulty in walking, not elsewhere classified; R32 Unspecified urinary incontinence; M19.91 Primary osteoarthritis, unspecified site; K21.9 Gastro-esophageal reflux disease without esophagitis; E66.01 Morbid (severe) obesity due to excess calories; Z87.891 Personal history of nicotine dependence; Z79.82 Long term (current) use of aspirin; Z79.899 Other long term (current) drug therapy; Z88.0 Allergy status to penicillin; Z88.5 Allergy status to narcotic agent; Z88.6 Allergy status to analgesic agent
CPT/HCPCS: 96376 ×2; 96374; 96375; 99284; 36415; 97116; 97161; 97535; 97166; 80053; 85025; 93971; G0378 ×4; J1170 ×2; J1885 ×2

== ENCOUNTER 2023-09-19 07:15 | Emergency (ER) | payer MEDICARE ==
[2023-09-19 07:21] VITALS: RESP 18; TEMP 98.1
--- NOTE | 2023-09-19 07:56 | ED ---
Female Urogenital HPI - General Chief complaint: Urogenital Stated complaint: UTI, Constipation, Burst hemorrhoid, swelling Time Seen by Provider: 09/19/23 07:40 Source: patient, RN notes reviewed Mode of arrival: ambulatory Limitations: no limitations - History of Present Illness Initial comments: This is an 78-year-old female who presents to the emergency department for frequent urination, constipation, and left leg swelling. Patient had a left knee replacement on 08/28/2023. She ended up going back to the hospital due to problems with pain control shortly afterwards and was discharged with home health services. States that from taking pain medication, she has been constipated and has not had a bowel movement in 6 days. Denies any abdominal pain or nausea but states that she feels bloated. Reports trying [id number] treatments without relief, but is unsure what she has tried. Additionally, states that she "blew a hemorrhoid" from all of the straining. States that over the last couple of days her left leg has been swollen more than usual, but is not painful. Additionally, she is concerned about a UTI as she has had very frequent urination for the last couple of days and states that her urine has a foul odor. - Related Data Home Medications Medication Instructions Recorded Confirmed Ibuprofen [Motrin] 800 tab PO Q6H PRN 01/26/15 08/31/23 Omeprazole [PriLOSEC] 20 tab PO DAILY 01/26/15 08/31/23 Ergocalciferol [Vitamin D2 (1250 1,250 mcg PO SA 08/25/23 08/31/23 Mcg = 14817 Iu)] oxyBUTYnin chloride [oxyBUTYnin 5 mg PO DAILY 08/31/23 08/31/23 chloride ER] Previous Rx's Medication Instructions Recorded Aspirin [Adult Low Dose Aspirin EC] 81 mg PO BID #60 tab 08/29/23 Docusate [Colace] 100 mg PO BID #60 capsule 08/29/23 Ondansetron [Zofran] 4 mg PO Q8HR PRN #21 tab 08/29/23 oxyCODONE HCL/ACETAMINOPHEN 1 tab PO Q4HR PRN #32 tab 08/29/23 [Percocet 5-325 mg] oxyCODONE HCL/ACETAMINOPHEN 1 tab PO Q4HR PRN #32 tab 09/03/23 [Percocet 5-325 mg] Lactulose [Cephulac] 20 gm PO DAILY PRN #473 ml 09/19/23 Lidocaine [Lidocaine Rectal Cream 1 applic TOPICAL TID PRN #30 gram 09/19/23 5%] cefUROXime axetiL [Ceftin] 500 mg PO BID 7 Days #14 tab 09/19/23 Allergies Allergy/AdvReac Type Severity Reaction Status Date / Time Iodinated Contrast Media Allergy Anaphylaxis Verified 09/19/23 07:21 acetaminophen [From [place]] AdvReac Nausea Verified 09/19/23 07:21 adhesive tape AdvReac Rash/Hives Verified 09/19/23 07:21 aspirin AdvReac Nausea & Verified 09/19/23 07:21 Vomiting hydrocodone bitartrate AdvReac Nausea Verified 09/19/23 07:21 [From [place]] Penicillins AdvReac "Passed Verified 09/19/23 07:21 out" Review of Systems ROS Statement: Those systems with pertinent positive or pertinent negative responses have been documented in the HPI. ROS Other: All systems not noted in ROS Statement are negative. Past Medical History Past Medical History: GERD/Reflux, Osteoarthritis (OA) Additional Past Medical History / Comment(s): OCC INCONTINENT History of Any Multi-Drug Resistant Organisms: None Reported Past Surgical History: Heart Catheterization, Hernia Repair, Orthopedic Surgery Additional Past Surgical History / Comment(s): hernia mesh x2. BILATERAL WRIST- REMOVAL CARTILEDGE. BILATERAL CATARACT WITH LENS. RIGHT ANKLE BONE SPUR. TOTAL LEFT KNEE. Additional Past Anesthesia/Blood Transfusion Reaction / Comment(s): POSSIBLE JACQUELINE POST ANESTHESIA (PER MEDICAL CLEARANCE). Past Psychological History: No Psychological Hx Reported Smoking Status: Former smoker Past Alcohol Use History: None Reported Past Drug Use History: None Reported - Past Family History Son(s) Family Medical History: Deep Vein Thrombosis (DVT) General Exam Limitations: no limitations General appearance: alert, in no apparent distress Head exam: Present: atraumatic, normocephalic, normal inspection Respiratory exam: Present: normal lung sounds bilaterally. Absent: respiratory distress, wheezes, rales, rhonchi, stridor Cardiovascular Exam: Present: regular rate, normal rhythm, normal heart sounds. Absent: systolic murmur, diastolic murmur, rubs, gallop, clicks GI/Abdominal exam: Present: soft, tenderness (LLQ), normal bowel sounds. Absent: distended Rectal exam: Present: other (External hemorrhoids. No active bleeding. These are not thrombosed.) Extremities exam: Present: other (Generalized swelling and tenderness to the left lower extremity. No erythema or warmth. 2+ DP and PT pulses.) Neurological exam: Present: alert, oriented X3, CN II-XII intact Psychiatric exam: Present: normal affect, normal mood Skin exam: Present: warm, dry, intact, normal color. Absent: rash Course Vital Signs 09/19/23 09/19/23 09/19/23 07:18 08:11 10:00 Temperature 98.1 F Pulse Rate 78 69 84 Respiratory 18 18 18 Rate Blood Pressure 142/81 161/92 170/92 O2 Sat by Pulse 93 L 93 L 95 Oximetry 09/19/23 12:00 Temperature Pulse Rate 82 Respiratory 18 Rate Blood Pressure 164/88 O2 Sat by Pulse 94 L Oximetry Medical Decision Making - Medical Decision Making This is an 78 year old female who presents to the emergency department for frequent urination, constipation, and left leg swelling. Was pt. sent in by a medical professional or institution? @ -No Did you speak to anyone other than the patient for history? @ -No Did you review nursing and triage notes? @ -Yes, and I agree, it is accurate with regards to the patient's symptoms. Were old charts reviewed? @ -No Differential Diagnosis? @ -Differential Urinary Problems: UTI, pyelonephritis, STI, overactive bladder, kidney stone, this is not meant to be an all-inclusive list. EKG interpreted by me (3pts min.)? @ -Not obtained X-rays interpreted by me (1pt min.)? @ -KUB x-ray obtained. My interpretation identifies no evidence of bowel loop dilation. CT interpreted by me (1pt min.)? @ -Not obtained U/S interpreted by me (1pt. min.)? @ -Duplex US of the left lower extremity obtained. My interpretation identifies no evidence of a DVT. What testing was considered but not performed? (CT, X-rays, U/S, labs)? Why? @ -None What meds were considered but not given? Why? @ -None Did you discuss the management of the patient with other professionals? @ -No Did you reconcile home meds? @ -No Was smoking cessation discussed for >3mins.? @ -No Was critical care preformed (if so, how long)? @ -No Were there social determinants of health that impacted care today? How? (Homelessness, low income, unemployed, alcoholism, drug addiction, transportation, low edu. Level, literacy, decrease access to med. care, prison, rehab)? @ -No Was there de-escalation of care discussed even if they declined? (Discuss DNR or withdrawal of care, Hospice)? @ -No What co-morbidities impacted this encounter? (DM, HTN, Smoking, COPD, CAD, Cancer, CVA, Hep., AIDS, mental health diagnosis, sleep apnea, morbid obesity)? @ -Osteoarthritis Was patient admitted / discharged? @ -Discharged. Lab work unremarkable. Urinalysis consistent with infection and urine was sent for culture. KUB x-ray demonstrates an overall nonobstructive bowel gas pattern with gas and fecal material in the nondistended colon. Duplex ultrasound of the left lower extremity obtained demonstrating no evidence of a DVT. Milk molasses enema was administered, however patient was unable to produce a bowel movement. 2 g of ceftriaxone administered for the UTI and a prescription for cefuroxime was provided. Lactulose prescribed for constipation and she was also given a prescription for rectal lidocaine cream for the hemorrhoids. Rectal hydrocortisone cream was provided in the emergency department to continue using for hemorrhoid management as well. We also discussed sitz bath's and witch moris. Also advised she limit her use of [place] due to the constipating factor. Undiagnosed new problem with uncertain prognosis? @ -None Drug Therapy requiring intensive monitoring for toxicity (Heparin, Nitro, Insulin, Cardizem)? @ -None Were any procedures done? @ -None Diagnosis/symptom? @ -UTI, constipation Acute, or Chronic, or Acute on Chronic? @ -Acute Uncomplicated (without systemic symptoms) or Complicated (systemic symptoms)? @ -Uncomplicated Side effects of treatment? @ -None Exacerbation, Progression, or Severe Exacerbation] @ -Not applicable Poses a threat to life or bodily function? @ -No Return precautions reviewed in depth, the patient is instructed to return to the emergency department with any new, worsening, or concerning symptoms. Patient verbalized understanding. This case was discussed in detail with the attending ED physician, Dr. Escudero. Presentation, findings, and treatment plan discussed in detail as well. - Lab Data Result diagrams: 09/19/23 08:02 09/19/23 08:02 Lab Results 09/19/23 09/19/23 09/19/23 Range/Units 08:02 08:02 08:02 WBC 4.9 (3.8-10.6) k/uL RBC 4.32 (3.80-5.40) m/uL Hgb 12.7 (11.4-16.0) gm/dL Hct 40.3 (34.0-46.0) % MCV 93.3 (80.0-100.0) fL MCH 29.3 (25.0-35.0) pg MCHC 31.4 (31.0-37.0) g/dL RDW 13.4 (11.5-15.5) % Plt Count 257 (150-450) k/uL MPV 7.5 Neutrophils % 60 % Lymphocytes % 25 % Monocytes % 9 % Eosinophils % 3 % Basophils % 1 % Neutrophils # 3.0 (1.3-7.7) k/uL Lymphocytes # 1.2 (1.0-4.8) k/uL Monocytes # 0.4 (0-1.0) k/uL Eosinophils # 0.1 (0-0.7) k/uL Basophils # 0.0 (0-0.2) k/uL Sodium 134 L (137-145) mmol/L Potassium 4.2 (3.5-5.1) mmol/L Chloride 107 (98-107) mmol/L Carbon Dioxide 27 (22-30) mmol/L Anion Gap 0 mmol/L BUN 12 (7-17) mg/dL Creatinine 0.70 (0.52-1.04) mg/dL Est GFR (CKD-EPI)AfAm >90 (>60 ml/min/1.73 sqM) Est GFR (CKD-EPI)NonAf 82 (>60 ml/min/1.73 sqM) Glucose 117 H (74-99) mg/dL Plasma Lactic Acid Celio (0.7-2.0) mmol/L Calcium 9.9 (8.4-10.2) mg/dL Total Bilirubin 0.6 (0.2-1.3) mg/dL AST 20 (14-36) U/L ALT 12 (4-34) U/L Alkaline Phosphatase 106 (38-126) U/L Total Protein 5.6 L (6.3-8.2) g/dL Albumin 3.2 L (3.5-5.0) g/dL Amylase 38 (30-110) U/L Lipase 26 (23-300) U/L Urine Color Light Yellow Urine Appearance Cloudy H (Clear) Urine pH 6.5 (5.0-8.0) Ur Specific Mittie 1.015 (1.001-1.035) Urine Protein Negative (Negative) Urine Glucose (UA) Negative (Negative) Urine Ketones Negative (Negative) Urine Blood Trace H (Negative) Urine Nitrite Negative (Negative) Urine Bilirubin Negative (Negative) Urine Urobilinogen <2.0 (<2.0) mg/dL Ur Leukocyte Esterase Moderate H (Negative) Urine RBC 4 (0-5) /hpf Urine WBC 20 H (0-5) /hpf Ur Squamous Epith Cells <1 (0-4) /hpf Calcium Oxalate Crystal Rare H (None) /hpf Urine Bacteria Many H (None) /hpf Urine Mucus Rare H (None) /hpf 09/19/23 Range/Units 08:02 WBC (3.8-10.6) k/uL RBC (3.80-5.40) m/uL Hgb (11.4-16.0) gm/dL Hct (34.0-46.0) % MCV (80.0-100.0) fL MCH (25.0-35.0) pg MCHC (31.0-37.0) g/dL RDW (11.5-15.5) % Plt Count (150-450) k/uL MPV Neutrophils % % Lymphocytes % % Monocytes % % Eosinophils % % Basophils % % Neutrophils # (1.3-7.7) k/uL Lymphocytes # (1.0-4.8) k/uL Monocytes # (0-1.0) k/uL Eosinophils # (0-0.7) k/uL Basophils # (0-0.2) k/uL Sodium (137-145) mmol/L Potassium (3.5-5.1) mmol/L Chloride (98-107) mmol/L Carbon Dioxide (22-30) mmol/L Anion Gap mmol/L BUN (7-17) mg/dL Creatinine (0.52-1.04) mg/dL Est GFR (CKD-EPI)AfAm (>60 ml/min/1.73 sqM) Est GFR (CKD-EPI)NonAf (>60 ml/min/1.73 sqM) Glucose (74-99) mg/dL Plasma Lactic Acid Celio 1.4 (0.7-2.0) mmol/L Calcium (8.4-10.2) mg/dL Total Bilirubin (0.2-1.3) mg/dL AST (14-36) U/L ALT (4-34) U/L Alkaline Phosphatase (38-126) U/L Total Protein (6.3-8.2) g/dL Albumin (3.5-5.0) g/dL Amylase (30-110) U/L Lipase (23-300) U/L Urine Color Urine Appearance (Clear) Urine pH (5.0-8.0) Ur Specific Mittie (1.001-1.035) Urine Protein (Negative) Urine Glucose (UA) (Negative) Urine Ketones (Negative) Urine Blood (Negative) Urine Nitrite (Negative) Urine Bilirubin (Negative) Urine Urobilinogen (<2.0) mg/dL Ur Leukocyte Esterase (Negative) Urine RBC (0-5) /hpf Urine WBC (0-5) /hpf Ur Squamous Epith Cells (0-4) /hpf Calcium Oxalate Crystal (None) /hpf Urine Bacteria (None) /hpf Urine Mucus (None) /hpf - Radiology Data Radiology results: report reviewed, image reviewed Disposition Clinical Impression: UTI (urinary tract infection), Constipation, Hemorrhoids Disposition: HOME SELF-CARE Instructions (If sedation given, give patient instructions): Constipation (ED), Hemorrhoids (ED), Urinary Tract Infection in Women (ED) Additional Instructions: Return to the emergency department with any new, worsening, or concerning sympto ms. Take the antibiotic as prescribed for 7 days. You can use the lactulose daily to help with constipation. Make sure you drink plenty of fluids. Limit your use of the [place] as well. You can use the rectal lidocaine cream prescribed and the rectal hydrocortisone cream provided in the emergency department to help with the hemorrhoids. You can also take sitz bath's and use witch moris. Follow up with your primary care provider in 1-2 days. Prescriptions: cefUROXime axetiL [Ceftin] 500 mg PO BID 7 Days #14 tab Lactulose [Cephulac] 20 gm PO DAILY PRN #473 ml PRN Reason: Constipation Lidocaine [Lidocaine Rectal Cream 5%] 1 applic TOPICAL TID PRN #30 gram PRN Reason: Pain Is patient prescribed a controlled substance at d/c from ED?: No Referrals: Alayna Smith MD [Primary Care Provider] - 1-2 days Time of Disposition: 12:33
[2023-09-19 08:21] LABS: Basophils % (A) 1 %; Eosinophils # (A) 0.1 k/uL (0-0.7); Eosinophils % (A) 3 %; HCT 40.3 % (34.0-46.0); HGB 12.7 gm/dL (11.4-16.0); Lymphocytes # (A) 1.2 k/uL (1.0-4.8); Lymphocytes % (A) 25 %; MCH 29.3 pg (25.0-35.0); MCHC 31.4 g/dL (31.0-37.0); MCV 93.3 fL (80.0-100.0); Mean Platelet Volume 7.5; Monocytes # (A) 0.4 k/uL (0-1.0); Monocytes % (A) 9 %; Neutrophils % (A) 60 %; Platelet Count 257 k/uL (150-450); RBC 4.32 m/uL (3.80-5.40); RDW 13.4 % (11.5-15.5); WBC 4.9 k/uL (3.8-10.6)
[2023-09-19 08:33] LABS: ALT 12 U/L (4-34); AST 20 U/L (14-36); African American GFR (CKD) >90 (>60 ml/min/1.73 sqM); Albumin 3.2 g/dL (3.5-5.0); Alkaline Phosphatase 106 U/L (38-126); Amylase 38 U/L (30-110); Anion Gap 0 mmol/L; Blood Urea Nitrogen 12 mg/dL (7-17); Calcium 9.9 mg/dL (8.4-10.2); Carbon Dioxide 27 mmol/L (22-30); Chloride 107 mmol/L (98-107); Glucose 117 mg/dL (74-99); Lipase 26 U/L (23-300); Non-African American GFR(CKD) 82 (>60 ml/min/1.73 sqM); Potassium 4.2 mmol/L (3.5-5.1); Sodium 134 mmol/L (137-145); Total Bilirubin 0.6 mg/dL (0.2-1.3); Total Protein 5.6 g/dL (6.3-8.2)
--- NOTE | 2023-09-19 09:02 | XR ---
EXAMINATION TYPE: XR KUB DATE OF EXAM: 09/19/2023 COMPARISON: NONE HISTORY: Pain TECHNIQUE: Single supine KUB image of the abdomen is obtained FINDINGS: Small bowel demonstrates no evidence for dilatation or air fluid levels. Gas and fecal material is seen in non-distended colon. No convincing evidence for pneumoperitoneum. No unusual calcifications. The lung bases are clear. The osseous structures are intact. IMPRESSION: 1. Overall nonobstructive bowel gas pattern.
--- NOTE | 2023-09-19 09:22 | US ---
EXAMINATION TYPE: US venous doppler duplex LE LT DATE OF EXAM: 09/19/2023 7:51 AM COMPARISON: NONE CLINICAL INDICATION: Female, 78 years old with history of Leg swelling, recent knee replacement; Left leg swelling and pain. Total left knee replacement 2 weeks ago. SIDE PERFORMED: Left TECHNIQUE: The lower extremity deep venous system is examined utilizing real time linear array sonog ruy with graded compression, doppler sonography and color-flow sonography. VESSELS IMAGED: Common Femoral Vein Deep Femoral Vein Greater Saphenous Vein * Femoral Vein Popliteal Vein Small Saphenous Vein * Proximal Calf Veins (* superficial vessels) Left Leg: No evidence for DVT in vessels visualized. Distal fem vein slightly limited due to body arthur bitus and inability to tolerate compression IMPRESSION: Grayscale, color doppler, spectral doppler imaging performed of the deep veins of the lo wer extremities. There is normal flow, compressibility, vascular waveforms.
[2023-09-19] MEDS: KETOROLAC 15 MG/ML 1 ML VIAL IVP STA (10:11)
[2023-09-19] MEDS: MORPHINE SULFATE 2 MG/ML SYRINGE IVP STA (10:12)
[2023-09-19 11:01] LABS: Appearance,Urine Cloudy (Clear); Bacteria,Urine Many /hpf; Bilirubin,Urine Negative (Negative); Blood,Urine Trace (Negative); Calcium Oxalate Crystals,Urine Rare /hpf; Color,Urine Light Yellow; Glucose,Urine (UA) Negative (Negative); Ketones,Urine Negative (Negative); Leukocyte Esterase,Urine Moderate (Negative); Mucus,Urine Rare /hpf; Nitrite,Urine Negative (Negative); PH, Urine 6.5 (5.0-8.0); Protein,Urine Negative (Negative); RBC,Urine 4 /hpf (0-5); Specific Gravity,Urine 1.015 (1.001-1.035); Squamous Epithelial Cell,Urine <1 /hpf (0-4); Urobilinogen,Urine <2.0 mg/dL (<2.0); WBC,Urine 20 /hpf (0-5)
[2023-09-19] MEDS: HYDROCORTISONE 2.5% RECTAL CREAM 30 GM TUBE RECTAL STA (12:16)
[2023-09-19 12:20] VITALS: BP 164/88; PULSE 82
[2023-09-19] MEDS: cefTRIAXone IN SWFI 1,000 MG/10 ML SYRINGE IVP STA (12:46)
== END 2023-09-19 13:02 | disposition home or self-care (01) ==
LOC: EC 07:15
DX: N39.0 Urinary tract infection, site not specified (principal); K59.00 Constipation, unspecified; K64.9 Unspecified hemorrhoids; Z87.891 Personal history of nicotine dependence; Z91.041 Radiographic dye allergy status; Z88.5 Allergy status to narcotic agent; Z88.0 Allergy status to penicillin; Z88.8 Allergy status to other drugs, medicaments and biological substances
CPT/HCPCS: 36415; 80053; 82150; 83605; 83690; 85025; 81001; 87086; 74018; 93971; 99284; 96374; 96375 ×2; J0696; J2270; J1885